=== PATIENT | male | born 1965 | race Hispanic/Latino ===

== ENCOUNTER 2024-01-01 19:10 | Emergency (ER) | payer BC, SELFPAY ==
[2024-01-01 19:27] VITALS: BP 143/96; PULSE 75; TEMP 36.9
--- NOTE | 2024-01-01 19:45 | ECG_ITS ---
Measurements Intervals Porter Rate: 68 P: 41 MN: 191 QRS: 65 QRSD: 103 T: 32 QT: 380 QTc: 406 Interpretive Statements SINUS RHYTHM BASELINE ARTIFACT- I, II, III, AVR, AVL, AVF NORMAL ECG NO PREVIOUS ECG AVAILABLE FOR COMPARISON Electronically Signed On 01-02-2024 10:46:34 [employer] by Altaf Avalos D.O.
--- NOTE | 2024-01-01 19:45 | ED.NECK ---
HPI - Neck Pain/Injury General Chief Complaint: Neck Pain/Injury Stated Complaint: neck/shoulder pain,chest pain Time Seen by Provider: 01/01/24 19:17 Source: patient Mode of arrival: ambulatory Limitations: no limitations History of Present Illness HPI Narrative: Manual is a 58-year-old male patient presenting to the clinic today with complaints of bilateral lateral neck pain radiating into the trapezius musculature, also reports that he has periodic spasms and his right chest wall. Denies any associated shortness of breath. Denies of any pain radiating into his jaw. Denies any current chest pain. Reports he does do lifting for his job-approximately 30-40 lb daily Related Data Allergies Allergy/AdvReac Type Severity Reaction Status Date / Time No Known Allergies Allergy Verified 01/01/24 20:01 Review of Systems Review of Systems: Pertinent positives per HPI. Patient denies any fever, chills, rash, headache, visual changes, dizziness, cough, shortness of breath, chest pain, palpitations, nausea, vomiting, diarrhea, constipation, abdominal pain, or any urinary issues. PMFSH Comments At the time of my signature, I reviewed and agree with the nursing past medical, surgical, social, and family history. There is no relevant family history pertinent to the patient complaint. Exam Narrative: General: Well-developed, well nourished, in no apparent distress Head: Normocephalic, atraumatic. Chest wall: Even rise and fall chest wall with respirations, nontender palpation, no bruising or swelling noted Cardio: Regular rate and rhythm, s1 and s2 normal, no murmur appreciated. Resp: Clear to auscultation bilaterally, no rhonchi, rales, wheezing or rubs. Musculoskeletal: No deformity, tender to palpation over the bilateral/lateral cervical spine over the musculature of the trapezius, grossly normal range of motion, muscle strength strong and equal, peripheral pulse strong, no edema, no cyanosis, normal gait and station Course Course Emergency Course: Portions of this record may have been created with voice recognition software. Level of Care: Express Care Visit Vital Signs Vital signs: Vital Signs Temperature 36.9 C 01/01/24 19:27 Pulse Rate 75 01/01/24 19:27 Blood Pressure 143/96 H 01/01/24 19:27 Temperature 36.9 C 01/01/24 19:27 Pulse Rate 75 01/01/24 19:27 Blood Pressure 143/96 H 01/01/24 19:27 Vital signs reviewed MDM - Neck Pain/Injury MDM Narrative Medical decision making narrative: At the time of visit patient is resting comfortably on the exam table. Patient appears to be nontoxic. EKG: Shows normal sinus rhythm with heart rate 60 beats per minute without any ST elevation, depression, or T-wave inversion. Plan: I suspect patient has a cervical strain of the trapezius musculature. Prescription for Flexeril Medrol Dosepak was sent to the pharmacy. Supportive measures were discussed with the patient and they voiced understanding discharge instructions and agrees to treatment plan. Return precautions reviewed Differential Diagnosis Differential diagnosis: Likely disc disorder of cervical region, torticollis, cervical spondylosis, strain of neck muscle and other (Chest wall pain) ECG Data EKG #1: Attestation: I personally reviewed and interpreted this ECG as follows: ECG completion date: 01/01/24 ECG completion time: 19:56 Prior ECG tracings: not available for review Interpretation: EKG shows normal sinus rhythm with heart rate of 60 beats per minute without any ST elevation depression or T-wave inversion. NH interval is 191 milliseconds, QRS durations 103 milliseconds, QT-QTC is 380-298 milliseconds, P-R-T axis is 41 65 32 Discharge Plan Discharge Clinical Impression: Strain of cervical portion of both trapezius muscles Patient Disposition: Home, Self-Care Condition: Stable Instructions: Antibiotic Form, Cervical Strain (ED) A
== END 2024-01-01 20:06 | disposition home or self-care (01) ==
PROVIDERS: Emergency Provider Nurse Practitioner Family; PCP Physician Assistant
DX: S16.1XXA Strain of muscle, fascia and tendon at neck level, initial encounter (principal); X58.XXXA Exposure to other specified factors, initial encounter
CPT/HCPCS: 93005; 99213; G0463

== ENCOUNTER 2024-10-21 10:11 | Emergency (ER) | payer BC, SELFPAY ==
--- NOTE | 2024-10-21 10:16 | ED_ITS ---
HPI - Abdominal Pain General Chief Complaint: Abdominal Pain Stated Complaint: Abdominal/Throat Pain Time Seen by Provider: 10/21/24 10:18 Source: patient, RN notes reviewed and old records reviewed Mode of arrival: ambulatory Limitations: no limitations History of Present Illness HPI narrative: 59-year-old male presents to the [facility] with complaints of 1 week history of intermittent epigastric discomfort, burning. States it is worse when he eats spicy food. States that he feels nauseous after he eats. No vomiting or diarrhea. No bloating. No treatment prior to arrival Denies chest pain, shortness of breath. Onset (ago): week(s) (1) Related Data Allergies Allergy/AdvReac Type Severity Reaction Status Date / Time No Known Allergies Allergy Verified 10/21/24 10:29 Review of Systems Review of Systems: All systems reviewed & are unremarkable except as noted in HPI and below Constitutional: Constitutional: Reports no additional constitutional complaints ENT: Reports system reviewed and no additional complaints, except as documented Cardiovascular: Cardiovascular: Reports no additional cardiovascular complaints, Denies chest pain and Denies dyspnea Respiratory: Respiratory: Reports no additional respiratory complaints, Denies chest congestion, Denies cough and Denies dyspnea Gastrointestinal: Gastrointestinal: Reports as per HPI, Reports heartburn and Reports nausea Musculoskeletal: Musculoskeletal: Reports no additional musculoskeletal complaints Integumentary/Breasts: Skin/Breast: Reports system reviewed and no additional complaints, except as docu PMFSH Comments At the time of my signature, I reviewed and agree with the nursing past medical, surgical, social, and family history. There is no relevant family history pertinent to the patient complaint. Exam Const: General: cooperative, healthy appearing, comfortable, no acute distress, well developed, alert and well nourished Nutritional Appearance: well nourished Orientation/consciousness: patient oriented x3 Limitations: no limitations HENMT: Head: normal to inspection Face and sinus: normal facial exam and face symmetric Eyes: General: appearance normal, both eyes and all related structures Neck: Neck: normal visual inspection, full ROM, no lymphadenopathy and no meningeal signs Chest: Chest palpation & inspection: normal inspection of the chest Resp: Effort & Inspection: normal respiratory effort and able to speak in complete sentences Auscultation: clear to auscultation bilaterally, no crackles, no rales, no rhonchi and no wheezes Cardio: Rate: regular rate GI: GI Palp: Yes abdominal tenderness (Epigastric), Yes Soft to palpation and No Guarding due to palpation present (GI) Auscultation: Hyperactive bowel sounds present Skin: General skin exam: normal color and no rashes or lesions noted Neuro: General: patient oriented x3, gait normal, moves all extremities and no meningeal signs Cognition (Neuro): normal cognition Speech: normal speech Gait exam (Neuro): Normal gait present Extrem: General: normal to inspection, full ROM, capillary refill normal and normal gait Psych: Appearance: grossly normal and well kempt Mental Status: mental status grossly normal Speech and movement: Normal speech and movement present and Clear speech present Affect: normal affect Attitude: cooperative Course Course Level of Care: Express Care Visit Vital Signs Vital signs: Vital Signs Temperature 96.4 F L 10/21/24 10:19 Pulse Rate 68 10/21/24 10:19 Respiratory Rate 16 10/21/24 10:19 Blood Pressure 150/85 H 10/21/24 10:19 Pulse Oximetry 98 10/21/24 10:19 Oxygen Delivery Room Air 10/21/24 10:19 Temperature 96.4 F L 10/21/24 10:19 Pulse Rate 68 10/21/24 10:19 Respiratory Rate 16 10/21/24 10:19 Blood Pressure 150/85 H 10/21/24 10:19 Pulse Oximetry 98 10/21/24 10:19 Oxygen Delivery Room Air 10/21/24 10:19 Reviewed MDM - Abdominal Pain MDM Narrative Medical decision making narrative: Patient sitting in exam room. Nontoxic, vitals are stable except blood pressure mildly elevated. Patient presents with intermittent epigastric discomfort, worse with eating especially spicy food. Exam with no acute findings. Will prescribe an acid commercial census taker, signs and symptoms discussed to go the emergency room which patient verbalized understand Discharge instructions reviewed with patient, as well as provided in writing per nursing staff. The instructions also include specific and strict return/GO TO THE ER as well as f/u information. All questions have been answered, and the patient deny any further questions with discharge and discharge plan. Some parts of this dictation were generated by voice recognition software and may contain typographical and/or grammatical inaccuracies. Differential Diagnosis Differential diagnosis: Likely abdominal pain, gastroenteritis, pancreatitis, small bowel obstruction and other (GERD) Critical Care Time Critical Care Time Critical Care Time: No Discharge Plan Discharge Clinical Impression: GERD (gastroesophageal reflux disease) Qualifiers: Esophagitis presence: esophagitis presence not specified Qualified Code(s): K21.9 - Gastro-esophageal reflux disease without esophagitis Patient Disposition: Home, Self-Care Condition: Stable Instructions: Diet for Stomach Ulcers and Gastritis (ED), GERD (Gastroesophageal Reflux Disease) (ED) Additional Instructions: No comas nada frito, grasoso, picante o muy procesado. Mantenga steven dieta muy simple. Aumenta tu consumo de agua [place] Pepcid diariamente Sera un seguimiento con steven proveedor de atenci?n primaria tanto para el seguimiento de [facility] myriam para que le controlen la presi?n arterial. Hoy tu presi?n arterial era 150/85. Si contin?a teniendo s?ntomas o empeorando, acuda a urgencias. Do not eat anything fried, greasy, spicy or highly processed. Keep your diet very simple. Increase your water intake Take Pepcid daily Follow-up with her primary care provider both for the [facility] follow-up and to have your blood pressure checked. Today your blood pressure was 150/85. If you continue to have symptoms, worsening symptoms please go to the emergency room Patient Language: Frisian Prescriptions: New famotidine [Pepcid] 20 mg tablet 20 mg PO DAILY Qty: 30 0RF Follow-up/Referrals: Andrew,EDDI Heller [Primary Care Provider] - 1 Week (express care follow up blood pressure check 150/85) Time of Disposition: 10:31
[2024-10-21 10:19] VITALS: BP 150/85; PULSE 68; RESP 16; TEMP 35.8; O2SAT 98
== END 2024-10-21 10:35 | disposition home or self-care (01) ==
PROVIDERS: Emergency Provider Nurse Practitioner; PCP Physician Assistant
DX: K21.9 Gastro-esophageal reflux disease without esophagitis (principal)
CPT/HCPCS: 99213; G0463

== ENCOUNTER 2025-04-08 09:39 | Emergency (ER) | payer OTHER, SELFPAY ==
[2025-04-08 09:41] VITALS: BP 156/93; PULSE 69; RESP 16; TEMP 36.4; O2SAT 99
--- NOTE | 2025-04-08 10:30 | ED_ITS ---
HPI - General Adult General Chief complaint: Unspecified Stated complaint: hemorrhoids Time Seen by Provider: 04/08/25 09:49 History of Present Illness HPI narrative: Denis Roberts is a 6-year-old male who presents today with complaints of having hemorrhoids have been acting up for the last few days. He states he had tried using a cream [id number] and help some but they seem to come back. He states he last had colonoscopy a year ago and they said everything was fine be the noted that he does have hemorrhoids. He states slight blood on the toilet paper when he wipes off and on but no bloody stools. Denies any abdominal pain no fevers no chills. Related Data Allergies Allergy/AdvReac Type Severity Reaction Status Date / Time No Known Allergies Allergy Verified 04/08/25 09:40 Review of Systems Review of Systems: All systems reviewed & are unremarkable except as noted in HPI and below Exam Narrative: GENERAL: Well-appearing, well-nourished, and in no acute distress. HEAD: Normocephalic, atraumatic. EYES: PERRLA and EOMI. ENT: Nares clear, no rhinorrhea or epistaxis. Mucous membranes moist. Oropharynx without tonsillar hypertrophy exudate or other lesions NECK: Supple. No adenopathy or masses. No carotid bruits or JVD CHEST: Clear to auscultation. No respiratory distress. No wheezes rales or rhonchi HEART: Regular rate and rhythm. No murmur heard. Normal peripheral pulses. ABDOMEN: Soft, nontender, nondistended, normal active bowel sounds. EXTREMITIES: Normal range of motion. No edema. SKIN: Warm, dry, no rash. NEURO: No focal deficits. Alert and oriented x3. PSYCH: Normal mood and affect. Course Vital Signs Vital signs: Vital Signs Temperature 36.4 C L 04/08/25 09:41 Pulse Rate 69 04/08/25 09:41 Respiratory Rate 16 04/08/25 09:41 Blood Pressure 156/93 H 04/08/25 09:41 Pulse Oximetry 99 04/08/25 09:41 Oxygen Delivery Room Air 04/08/25 09:41 Temperature 36.4 C L 04/08/25 09:41 Pulse Rate 69 04/08/25 09:41 Respiratory Rate 16 04/08/25 09:41 Blood Pressure 156/93 H 04/08/25 09:41 Pulse Oximetry 99 04/08/25 09:41 Oxygen Delivery Room Air 04/08/25 09:41 Medical Decision Making MDM Narrative Medical decision making narrative: 60 y/o male who presents with complaints of having hemorrhoids that have bothered him off and on for a long time and felt like he was having more pain over the past few days. On exam there are no external hemorrhoids noted / no blood noted bowel sounds presents throughout , no pain with palpation to abdomen plan to d/c with continued hydrocortisone GI referral provided Return precautions provided Medical Records Medical records reviewed: Yes I reviewed the external patient's medical records. Vital Signs Vital Signs: Vital Signs Temperature 36.4 C L 04/08/25 09:41 Pulse Rate 69 04/08/25 09:41 Respiratory Rate 16 04/08/25 09:41 Blood Pressure 156/93 H 04/08/25 09:41 Pulse Oximetry 99 04/08/25 09:41 Oxygen Delivery Room Air 04/08/25 09:41 Temperature 36.4 C L 04/08/25 09:41 Pulse Rate 69 04/08/25 09:41 Respiratory Rate 16 04/08/25 09:41 Blood Pressure 156/93 H 04/08/25 09:41 Pulse Oximetry 99 04/08/25 09:41 Oxygen Delivery Room Air 04/08/25 09:41 Vitals reviewed by me Lab Data Lab results reviewed: Yes I reviewed the patient's lab results. Discharge Plan Discharge Clinical Impression: Hemorrhoids without complication Patient Disposition: Home Condition: Stable Instructions: Antibiotic Form Additional Instructions: Start using hydrocortisone topical cream as ordered Please follow-up with the GI as we discussed Follow up with your PCP in 1 week If he develops any worsening symptoms or have any other concerns as always he may return to the emergency department Patient Language: Bahraini Prescriptions: New hydrocortisone 2.5 % cream with perineal applicator 1 applic RECTAL DAILY PRN (Reason: hemorrhoids) Qty: 30 0RF No Action famotidine [Pepcid] 20 mg tablet 20 mg PO DAILY Qty: 30 0RF Follow-up/Referrals: Andrew,EDDI Heller [Primary Care Provider] - Ricardo Diaz MD [Physician] - 1 Week Time of Disposition: 10:45
== END 2025-04-08 10:55 | disposition home or self-care (01) ==
PROVIDERS: Emergency Provider Nurse Practitioner Family; PCP Physician Assistant
DX: K64.9 Unspecified hemorrhoids (principal)
CPT/HCPCS: 99283